=== PATIENT | male | born 1980 | race Caucasian/White ===

== ENCOUNTER 2022-04-24 07:32 | Day surgery (SDC) | payer MEDICAID ==
[~2022-04-24] VITALS: Ht 190.5 cm; Wt 154.2 kg
[2022-04-24] MEDS: MIDAZOLAM HCL 5 MG/5 ML VIAL ONE ×7 (10:25→10:51)
[2022-04-24] MEDS: MEPERIDINE 100 MG INJ. 100 MG/ML VIAL ONE ×2 (10:25→10:33)
[2022-04-24 16:37] VITALS: BP_SYST 118
== END 2022-04-24 12:05 | disposition home or self-care (01) ==
LOC: SDS 07:32 → SMU 07:32 → SDS 12:05
PROVIDERS: ATTEND Internal Medicine Gastroenterology
DX: D64.9 Anemia, unspecified (principal); Z80.0 Family history of malignant neoplasm of digestive organs; K64.8 Other hemorrhoids; K29.50 Unspecified chronic gastritis without bleeding; K29.80 Duodenitis without bleeding; Z79.899 Other long term (current) drug therapy; Z20.822 Contact with and (suspected) exposure to COVID-19
CPT/HCPCS: 36415 ×2; 43239; 45378; 87426; 87081; 88305; 88312; 88313; 99152; 99153; U0003; G0378; J2250; J2175